=== PATIENT | female | born 2005 ===

== ENCOUNTER 2023-05-31 11:00 | Day surgery (SDC) | payer OTHER ==
[2023-05-30 09:35] VITALS: BMI 21.6
[~2023-05-31 11:00] MED LIST: ACETAMINOPHEN 500 MG TABLET (FP) PO PRN
[2023-05-31] MEDS ORDERED: IOHEXOL 180 MG/1 ML ML IJ ONE (12:57)
[2023-05-31] MEDS ORDERED: LIDOCAINE HCL 1% PRESERVATIVE FREE - 30ML VIAL INF ONE (12:57)
[2023-05-31] MEDS ORDERED: DEXAMETHASONE SOD PHOSPHATE 10 MG/1 ML VIAL IVPUSH ONE (12:57)
[2023-05-31 13:16] VITALS: PULSE 82; RESP 20; TEMP 98.6
[2023-05-31 13:42] VITALS: BP 120/80
== END 2023-05-31 14:11 | disposition home or self-care (01) ==
LOC: JASU-SURG 11:00
PROVIDERS: ATTEND Pain Medicine Pain Medicine
PROC: 3E0R3BZ Introduction of Anesthetic Agent into Spinal Canal, Percutaneous Approach (ICD-10-PCS; 2023-05-31)
PROC: 3E0R33Z Introduction of Anti-inflammatory into Spinal Canal, Percutaneous Approach (ICD-10-PCS; principal; 2023-05-31 13:00)
DX: M54.16 Radiculopathy, lumbar region (principal); M48.061 Spinal stenosis, lumbar region without neurogenic claudication
CPT/HCPCS: 76000-TC-FY; 81025; J1100